=== PATIENT | male | born 1950 | race Caucasian/White ===

== ENCOUNTER 2024-03-14 05:32 | Inpatient (IN) ==
[2024-03-14 06:24] LABS: ABS Basophils 0.1 10^3/uL (0.0-0.1); ABS Eosinophils 0.2 10^3/uL (0.0-0.5); ABS Lymphocytes 1.9 10^3/uL (1.0-4.8); ABS Monocytes 0.9 10^3/uL (0.0-1.1); ABS Neutrophils 7.1 10^3/uL (1.5-7.6); ABS Nucleated RBC 0.01 10^3/ul; Eosinophil % 1.9 %; Hematocrit 39.5 % (38-53); Hemoglobin 13.4 g/dL (13.2-16.3); Lymphocyte % 18.9 %; Mean Corpuscular Hemoglobin 31.3 pg (27-33); Mean Corpuscular Hgb Conc 33.9 g/dL (31-36); Mean Corpuscular Volume 92.1 fL (80-97); Mean Platelet Volume 7.3 fL (7.5-11.2); Nucleated Red Blood Cells % 0.1 %/100WBC (0.0-0.8); Platelet Count 303 10^3/uL (150-450); Red Blood Count 4.29 10^6/uL (4.06-5.63); White Blood Count 10.3 10^3/uL (3.6-10.2)
[2024-03-14 06:42] LABS: Albumin 4.3 g/dL (3.2-5.2); Albumin/Globulin Ratio 1.4 (1-3); Calcium 10.3 mg/dL (8.6-10.3); Creatinine, Serum 0.9 mg/dL (0.67-1.17); Globulin 3.1 g/dL (2-4); Potassium 4.2 mmol/L (3.5-5.0); Total Bilirubin 0.5 mg/dL (0.2-1.0); Total Protein 7.4 g/dL (6.4-8.9); eGFR CKD-EPI 89.6 (>60)
[2024-03-14 07:01] LABS: PSA Screen Ultra Sensitive 1.39 ng/mL (0-4.000)
[2024-03-14] MEDS: Ondansetron 4 mg VIAL 2 MG/ML 2 ml VIAL IV ONE (07:25)
[2024-03-14] MEDS: Morphine 2 MG/ML SYRINGE IV ONE ×3 (07:28→11:14)
[2024-03-14] MEDS: Iohexol 300 (CONTRAST) 10 ML SDV IV ONE (08:59)
[2024-03-14] MEDS ORDERED: Lidocaine 2% JELLY 6 ML Topical TOPICAL ONE (10:02)
[2024-03-14] MEDS: Lidocaine 2% JELLY 6 ML Topical TOPICAL ONE (10:40)
[2024-03-14] MEDS: Lactated Ringers 1000 ml BAG 1,000 ML IV ONE (11:10)
[2024-03-14 11:56] LABS: Urine Appearance Extra Turbid; Urine Color Dark-Red
[2024-03-14 12:15] LABS: Urine Bacteria Absent /HPF (Absent); Urine Red Blood Cell 3+(>10/hpf) /HPF (0-Trace); Urine White Blood Cell Absent /HPF (0-Trace)
[2024-03-14] MEDS: cefTRIAXone 1 gm/50 mL D5W 1 GM/50 ML BAG IV ONE (12:26)
[2024-03-14] MEDS: fentaNYL 100 mcg/2 ml 50 MCG/ML VIAL IV SLOW PU ONE (12:26)
[2024-03-14] MEDS ORDERED: Naloxone Nasal Spray 4 MG/0.1 ML NASAL.SPR INTRANASAL PRN (14:25)
[2024-03-14] MEDS: NS 0.9% 1000 ml BAG 1,000 ML IV SCH ×2 (14:46→22:18)
[2024-03-14 15:14] LABS: Hemoglobin 11.9 g/dL (13.2-16.3)
[2024-03-14] MEDS: Acetaminophen IV 1 GM/100ML 1,000 MG/100 ML BAG IV PRN (18:11)
[2024-03-14] MEDS: Ondansetron 4 mg VIAL 2 MG/ML 2 ml VIAL IV PRN (19:56)
[2024-03-14] MEDS: Mometasone/Formoter 200/5 MDI INH SCH (21:23)
[2024-03-15 04:17] LABS: ABS Basophils 0.1 10^3/uL (0.0-0.1); ABS Eosinophils 0.1 10^3/uL (0.0-0.5); ABS Lymphocytes 2.1 10^3/uL (1.0-4.8); ABS Monocytes 1.3 10^3/uL (0.0-1.1); ABS Neutrophils 7.3 10^3/uL (1.5-7.6); Eosinophil % 0.6 %; Hematocrit 27.6 % (38-53); Hemoglobin 9.8 g/dL (13.2-16.3); Lymphocyte % 19.3 %; Mean Corpuscular Hemoglobin 32.7 pg (27-33); Mean Corpuscular Hgb Conc 35.6 g/dL (31-36); Mean Corpuscular Volume 91.9 fL (80-97); Mean Platelet Volume 7.4 fL (7.5-11.2); Platelet Count 194 10^3/uL (150-450); Red Cell Distribution Width 15.2 % (12-17); White Blood Count 10.8 10^3/uL (3.6-10.2)
[2024-03-15 04:50] LABS: Calcium 8.8 mg/dL (8.6-10.3); Creatinine, Serum 0.96 mg/dL (0.67-1.17); Magnesium 1.6 mg/dL (1.9-2.7); eGFR CKD-EPI 82.9 (>60)
[2024-03-15] MEDS: Magnesium Sulfate 2 gm BAG 2 GM/50 ML BAG IVPB ONE (06:50)
[2024-03-15] MEDS ORDERED: cefTRIAXone 1 gm/50 mL D5W 1 GM/50 ML BAG IV SCH (09:00)
[2024-03-15] MEDS: ENZALUTAMIDE 40 MG PO SCH (09:33)
[2024-03-15] MEDS: cefTRIAXone 1 gm/50 mL D5W 1 GM/50 ML BAG IV SCH (09:34)
[2024-03-15 10:05] LABS: Hemoglobin 9.6 g/dL (13.2-16.3); Mean Corpuscular Hemoglobin 32.9 pg (27-33); Mean Corpuscular Hgb Conc 35.5 g/dL (31-36); Mean Corpuscular Volume 92.6 fL (80-97); Mean Platelet Volume 7.3 fL (7.5-11.2); Platelet Count 190 10^3/uL (150-450); Red Blood Count 2.91 10^6/uL (4.06-5.63); Red Cell Distribution Width 15.6 % (12-17); White Blood Count 9.2 10^3/uL (3.6-10.2)
[2024-03-15] MEDS ORDERED: Polyethylene Glycol 3350 17 GM PACKET PO PRN (11:24)
[2024-03-15] MEDS: Magnesium Hydroxide LIQ 30 ML UDC PO PRN (11:47)
[2024-03-15] MEDS: Gadoteridol (CONTRAST) 279.3 MG/ML 10 ML IV ONE (21:20)
[2024-03-16 07:28] LABS: Hematocrit 23.8 % (38-53); Hemoglobin 8.4 g/dL (13.2-16.3); Mean Corpuscular Hemoglobin 32.5 pg (27-33); Mean Corpuscular Hgb Conc 35.5 g/dL (31-36); Mean Corpuscular Volume 91.6 fL (80-97); Platelet Count 154 10^3/uL (150-450); Red Blood Count 2.59 10^6/uL (4.06-5.63); White Blood Count 8.8 10^3/uL (3.6-10.2)
[2024-03-16 08:15] LABS: Calcium 8.6 mg/dL (8.6-10.3); Creatinine, Serum 0.75 mg/dL (0.67-1.17); Magnesium 1.8 mg/dL (1.9-2.7); eGFR CKD-EPI 94.7 (>60)
[2024-03-16] MEDS ORDERED: Clindamycin 900 MG/50 **NS BAG 900 MG/50 ML BAG ONE (11:42)
[2024-03-16] MEDS ORDERED: fentaNYL 100 mcg/2 ml 50 MCG/ML VIAL IV PRN (12:05)
[2024-03-16] MEDS ORDERED: Naloxone 0.4 mg VIAL 0.4 mg/ml 1 ml VIAL IV PRN (12:05)
[2024-03-16 14:01] LABS: Ferritin 397.5 ng/mL (24-336)
[2024-03-16] MEDS ORDERED: Midazolam 2 mg/2 ml VIAL 1 mg/ml 2 ml VIAL (2 mg) ONE (14:04)
[2024-03-16] MEDS ORDERED: fentaNYL 250 mcg/5 ml 50 MCG/ML 5 ml VIAL (250 MCG) ONE (14:04)
[2024-03-16] MEDS ORDERED: Lidocaine 2% PF 5 ML VIAL ONE (14:05)
[2024-03-16] MEDS ORDERED: Propofol 10 MG/ML 20 ML BTL ONE (14:06)
[2024-03-16] MEDS ORDERED: Bupivacaine 0.25% w/EPI 10 ML SDV ONE (14:07)
[2024-03-16] MEDS ORDERED: Lidocaine 1% w EPI 1:100,000 MDV 20 ML VIAL ONE (14:07)
[2024-03-16] MEDS ORDERED: Rocuronium 50 mg VIAL 10 mg/ml 5 ml VIAL (50 mg) ONE (14:09)
[2024-03-16] MEDS ORDERED: HYDROmorphone 0.5 MG/0.5 ML SYRINGE ONE (15:22)
[2024-03-16] MEDS ORDERED: Acetaminophen IV 1 GM/100ML 1,000 MG/100 ML BAG IV ONE (16:11)
[2024-03-16] MEDS ORDERED: ceFAZolin 1 GM ADVAN 1 GM in NS 0.9% 50 ML 50 ML IVPB SCH (20:00)
[2024-03-16] MEDS ORDERED: Ondansetron 4 mg VIAL 2 MG/ML 2 ml VIAL ONE (21:26)
[2024-03-16] MEDS: Ondansetron 4 mg VIAL 2 MG/ML 2 ml VIAL IV PRN (21:27)
[2024-03-16] MEDS ORDERED: Magnesium Hydroxide LIQ 30 ML UDC PO PRN (21:39)
[2024-03-16] MEDS ORDERED: Ondansetron ODT 4 mg TAB 4 MG TAB PO PRN (21:39)
[2024-03-16] MEDS ORDERED: Morphine 2 MG/ML SYRINGE IV PRN (21:39)
[2024-03-16] MEDS: Lactated Ringers 1000 ml BAG 1,000 ML IV SCH (22:00)
[2024-03-16] MEDS: Magnesium Hydroxide LIQ 30 ML UDC PO SCH (22:53)
[2024-03-16 23:35] LABS: Hematocrit 27.8 % (38-53); Hemoglobin 9.5 g/dL (13.2-16.3)
[2024-03-17] MEDS: Clindamycin 600 MG/D5W BAG 600 MG/50 ML BAG IV SCH (00:02)
[2024-03-17 07:24] LABS: Mean Corpuscular Hemoglobin 31.7 pg (27-33); Mean Corpuscular Hgb Conc 34.6 g/dL (31-36); Mean Corpuscular Volume 91.5 fL (80-97); Mean Platelet Volume 8.1 fL (7.5-11.2); Platelet Count 157 10^3/uL (150-450); Red Blood Count 2.84 10^6/uL (4.06-5.63); Red Cell Distribution Width 15.2 % (12-17); White Blood Count 12.3 10^3/uL (3.6-10.2)
[2024-03-17] MEDS: Vitamin THERAPEUTIC TAB PO SCH (08:55)
[2024-03-17 10:22] LABS: Calcium 8.2 mg/dL (8.6-10.3); Creatinine, Serum 0.78 mg/dL (0.67-1.17); Magnesium 1.7 mg/dL (1.9-2.7); Potassium 3.9 mmol/L (3.5-5.0); eGFR CKD-EPI 93.6 (>60)
[2024-03-17] MEDS: Magnesium Sulfate 2 gm BAG 2 GM/50 ML BAG IVPB ONE (11:00)
[2024-03-17] MEDS: Ferric Gluconate IV 250 MG in NS 0.9% 250 ml 200 ML IVPB SCH (12:16)
[2024-03-17] MEDS: Enoxaparin 30 MG/0.3 ML SYR SUBCUT SCH (12:17)
[2024-03-18] MEDS: Lactulose 30 ml UDC PO PRN (05:52)
[2024-03-18 06:42] LABS: Hematocrit 23.1 % (38-53); Mean Platelet Volume 7.7 fL (7.5-11.2); Platelet Count 179 10^3/uL (150-450)
[2024-03-18 07:06] LABS: Calcium 8.2 mg/dL (8.6-10.3); Creatinine, Serum 0.67 mg/dL (0.67-1.17); Magnesium 1.8 mg/dL (1.9-2.7); Potassium 3.7 mmol/L (3.5-5.0)
[2024-03-18 07:46] LABS: ABS Eosinophils 0.1 10^3/uL (0.0-0.5); ABS Lymphocytes 1.1 10^3/uL (1.0-4.8); ABS Monocytes 1.3 10^3/uL (0.0-1.1); ABS Neutrophils 9.6 10^3/uL (1.5-7.6); Eosinophil % 0.5 %; Lymphocyte % 9.4 %; Mean Corpuscular Hgb Conc 34.6 g/dL (31-36); Mean Corpuscular Volume 92.4 fL (80-97); Red Blood Count 2.51 10^6/uL (4.06-5.63); Red Cell Distribution Width 14.8 % (12-17); White Blood Count 12.1 10^3/uL (3.6-10.2)
[2024-03-18] MEDS: Potassium Chlor 20 meq TAB.ER PO ONE (09:15)
[2024-03-18] MEDS: Magnesium Sulfate 2 gm BAG 2 GM/50 ML BAG IVPB ONE (11:47)
[2024-03-18] MEDS: Ondansetron 4 mg VIAL 2 MG/ML 2 ml VIAL IV PRN (18:30)
[2024-03-19 05:52] LABS: Hematocrit 21.1 % (38-53); Hemoglobin 7.3 g/dL (13.2-16.3); Mean Corpuscular Hemoglobin 32.2 pg (27-33); Mean Corpuscular Hgb Conc 34.6 g/dL (31-36); Mean Platelet Volume 7.6 fL (7.5-11.2); Platelet Count 200 10^3/uL (150-450); Red Blood Count 2.27 10^6/uL (4.06-5.63); Red Cell Distribution Width 15.1 % (12-17); White Blood Count 8.9 10^3/uL (3.6-10.2)
[2024-03-19 06:23] LABS: Creatinine, Serum 0.64 mg/dL (0.67-1.17); Potassium 3.6 mmol/L (3.5-5.0); eGFR CKD-EPI 99.3 (>60)
[2024-03-19] MEDS: Ferric Gluconate IV 250 MG in NS 0.9% 250 ml 200 ML IVPB SCH (10:41)
[2024-03-19] MEDS: KCL 20 MEQ/100 ML IVPREMIX 20 MEQ/100 ML BAG IV ONE (10:45)
[2024-03-20 06:31] LABS: Hematocrit 22.3 % (38-53); Hemoglobin 7.7 g/dL (13.2-16.3); Mean Corpuscular Hemoglobin 32.2 pg (27-33); Mean Corpuscular Hgb Conc 34.7 g/dL (31-36); Mean Corpuscular Volume 92.8 fL (80-97); Platelet Count 238 10^3/uL (150-450); Red Cell Distribution Width 16.3 % (12-17); White Blood Count 8.4 10^3/uL (3.6-10.2)
[2024-03-20 07:07] LABS: Creatinine, Serum 0.71 mg/dL (0.67-1.17); Potassium 3.7 mmol/L (3.5-5.0); eGFR CKD-EPI 96.3 (>60)
[2024-03-20 09:02] LABS: Vitamin D Total 25(OH) 19.4 ng/mL (20-50)
[2024-03-20] MEDS: Cholecalciferol (VIT D3) 1,000 unit TAB PO SCH (12:18)
[2024-03-21] MEDS: Potassium Chlor 20 meq TAB.ER PO ONE (09:38)
[2024-03-21 10:14] VITALS: BP 138/90
== END 2024-03-21 12:28 | DRG 481 ==
LOC: ED 05:32 → SUATTDRO 12:35 → EDHOLD 12:35 → SSU 03-15 07:50
PROVIDERS: ADMIT Internal Medicine; ATTEND Student in an Organized Health Care Education/Training Program

== ENCOUNTER 2024-03-19 10:08 | Inpatient (IN) ==
[2024-03-21] MEDS ORDERED: Al Hydrox/Mg Hydrox/Simet LIQ 30 ML UDC PO PRN (09:14)
[2024-03-21] MEDS: Enoxaparin 30 MG/0.3 ML SYR SUBCUT SCH (12:35)
[2024-03-21 15:48] LABS: Urine Appearance Clear; Urine Bilirubin Negative (Negative); Urine Blood 1+ (Negative); Urine Color Light-Yellow; Urine Glucose Negative (Negative); Urine Ketones Negative (Negative); Urine Nitrite Negative (Negative); Urine Protein Negative (Negative); Urine Urobilinogen 1+ (Negative); Urine pH 7.5 (5.0-8.0)
[2024-03-21 16:00] LABS: Urine Bacteria Absent /HPF (Absent); Urine Red Blood Cell 3+(>10/hpf) /HPF (0-Trace); Urine White Blood Cell 2+(11-20/hpf) /HPF (0-Trace)
[2024-03-21] MEDS: Mometasone/Formoter 200/5 MDI INH SCH (20:56)
[2024-03-22 06:58] LABS: ABS Eosinophils 0.2 10^3/uL (0.0-0.5); ABS Monocytes 0.8 10^3/uL (0.0-1.1); ABS Neutrophils 6.7 10^3/uL (1.5-7.6); ABS Nucleated RBC 0.01 10^3/ul; Eosinophil % 2.7 %; Hematocrit 28.7 % (38-53); Hemoglobin 9.9 g/dL (13.2-16.3); Lymphocyte % 11.3 %; Mean Corpuscular Hemoglobin 32.3 pg (27-33); Mean Corpuscular Hgb Conc 34.6 g/dL (31-36); Mean Corpuscular Volume 93.4 fL (80-97); Nucleated Red Blood Cells % 0.1 %/100WBC (0.0-0.8); Platelet Count 332 10^3/uL (150-450); Red Blood Count 3.07 10^6/uL (4.06-5.63); White Blood Count 8.8 10^3/uL (3.6-10.2)
[2024-03-22 07:27] LABS: Albumin 3.2 g/dL (3.2-5.2); Albumin/Globulin Ratio 1.1 (1-3); Calcium 8.9 mg/dL (8.6-10.3); Creatinine, Serum 0.68 mg/dL (0.67-1.17); Globulin 2.8 g/dL (2-4); Potassium 4.2 mmol/L (3.5-5.0); Total Bilirubin 1.1 mg/dL (0.2-1.0); eGFR CKD-EPI 97.5 (>60)
[2024-03-22] MEDS: Cholecalciferol (VIT D3) 1,000 unit TAB PO SCH (09:24)
[2024-03-22] MEDS: Multivitamins/Minerals TAB PO SCH (09:24)
[2024-03-22] MEDS: ENZALUTAMIDE 40 MG PO SCH (09:25)
[2024-03-22] MEDS: Polyethylene Glycol 3350 17 GM PACKET PO PRN (09:28)
[2024-03-22] MEDS: Enoxaparin 30 MG/0.3 ML SYR SUBCUT SCH (11:59)
[2024-03-24] MEDS: Senna TAB 8.6 mg TAB PO PRN (05:36)
[2024-03-24] MEDS: Magnesium Hydroxide LIQ 30 ML UDC PO PRN (13:23)
[2024-03-25] MEDS: Senna TAB 8.6 mg TAB PO SCH (20:59)
[2024-03-27] MEDS: Senna TAB 8.6 mg TAB PO SCH (18:34)
[2024-03-29 08:20] LABS: ABS Basophils 0.1 10^3/uL (0.0-0.1); ABS Eosinophils 0.1 10^3/uL (0.0-0.5); ABS Lymphocytes 1.3 10^3/uL (1.0-4.8); ABS Monocytes 0.8 10^3/uL (0.0-1.1); ABS Neutrophils 5.9 10^3/uL (1.5-7.6); Eosinophil % 1.7 %; Hematocrit 32.6 % (38-53); Hemoglobin 10.8 g/dL (13.2-16.3); Lymphocyte % 15.9 %; Mean Corpuscular Hemoglobin 31.5 pg (27-33); Mean Corpuscular Hgb Conc 33.3 g/dL (31-36); Mean Corpuscular Volume 94.6 fL (80-97); Mean Platelet Volume 6.7 fL (7.5-11.2); Platelet Count 580 10^3/uL (150-450); Red Blood Count 3.45 10^6/uL (4.06-5.63); Red Cell Distribution Width 16.4 % (12-17); White Blood Count 8.3 10^3/uL (3.6-10.2)
[2024-03-29 08:43] LABS: Albumin 3.6 g/dL (3.2-5.2); Albumin/Globulin Ratio 1.1 (1-3); Calcium 9.7 mg/dL (8.6-10.3); Creatinine, Serum 0.73 mg/dL (0.67-1.17); Globulin 3.3 g/dL (2-4); Potassium 4.4 mmol/L (3.5-5.0); Total Bilirubin 0.6 mg/dL (0.2-1.0); Total Protein 6.9 g/dL (6.4-8.9); eGFR CKD-EPI 95.5 (>60)
[2024-04-02 00:08] LABS: Urine Appearance Turbid; Urine Bilirubin Negative (Negative); Urine Blood 3+ (Negative); Urine Color Yellow; Urine Glucose Negative (Negative); Urine Ketones Negative (Negative); Urine Nitrite 2+ (Negative); Urine Protein Trace (Negative); Urine Specific Gravity 1.016 (1.002-1.030); Urine Urobilinogen Negative (Negative); Urine pH 7.5 (5.0-8.0)
[2024-04-02 00:22] LABS: Urine Bacteria Absent /HPF (Absent); Urine Red Blood Cell 3+(>10/hpf) /HPF (0-Trace); Urine White Blood Cell 3+(>20/hpf) /HPF (0-Trace)
[2024-04-02 05:37] VITALS: BP 139/84
[2024-04-02] MEDS: Sulfamethox/Trimethoprim DS TAB 800/160 mg PO SCH (11:31)
== END 2024-04-02 11:50 | disposition home or self-care (01) | DRG 560 ==
LOC: PMRU 03-21 12:28
PROVIDERS: ADMIT Physical Medicine & Rehabilitation; ATTEND Physical Medicine & Rehabilitation

== ENCOUNTER 2024-04-23 09:40 | Inpatient (IN) | END 2024-04-23 10:10 | disposition E | DRG 292 | LOC: ICU 09:40 | PROVIDERS: ADMIT Physician Assistant Surgical; ATTEND Student in an Organized Health Care Education/Training Program ==